=== PATIENT | female | born 1965 | race Caucasian/White ===

== ENCOUNTER 2020-07-02 08:13 | Emergency (ER) | payer OTHER, SELFPAY ==
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
[2020-07-02 08:24] VITALS: BP 149/97; PULSE 127; RESP 18; TEMP 36.7; O2SAT 100
--- NOTE | 2020-07-02 08:36 | PC.NURSE ---
C collar placed on pt by this RN .
[2020-07-02] MEDS: KETOROLAC (*BKC) 60 MG/2 ML VIAL IM (09:31)
[2020-07-02] MEDS: CYCLOBENZAPRINE HCL 10 MG TABLET PO (09:32)
== END 2020-07-02 09:59 | disposition home or self-care (01) ==
PROVIDERS: Emergency Provider Emergency Medicine
DX: S01.112A Laceration without foreign body of left eyelid and periocular area, initial encounter (principal); S39.012A Strain of muscle, fascia and tendon of lower back, initial encounter; I10 Essential (primary) hypertension; V48.5XXA Car driver injured in noncollision transport accident in traffic accident, initial encounter
CPT/HCPCS: 70450; 72131; 96372; 99284; A9270; J1885; L0140